=== PATIENT | female | born 1980 | race Asian ===

== ENCOUNTER → 2017-10-24 | Outpatient (CLI) | payer OTHER ==
[~2017-10-24] MED LIST: IOPAMIDOL (ISOVUE-370) 150 ML BTL IV ONE
== END ==
LOC: FIMAGING 12:44
PROVIDERS: ATTEND Obstetrics & Gynecology
PROC: BU18YZZ Fluoroscopy of Uterus and Fallopian Tubes using Other Contrast (ICD-10-PCS; principal; 2017-10-24)
DX: Z31.9 Encounter for procreative management, unspecified (principal)
CPT/HCPCS: Q9967